=== PATIENT | female | born 1950 | race Caucasian/White ===

== ENCOUNTER 2019-11-29 13:50 | Outpatient (CLI) | payer MEDICARE, SELFPAY ==
[2019-11-29 14:03] LABS: Basophils Absolute Auto 0.02 K/mm3 (0.00-0.10); Basophils Percent Auto 0.4 % (0.0-1.0); Eosinophils Absolute Auto 0.07 K/mm3 (0.02-0.50); Eosinophils Percent Auto 1.6 % (1.0-6.0); Hematocrit 35.3 % (35.0-42.0); Hemoglobin 11.8 g/dL (11.7-13.8); Immature Granulocyte Absolute 0.02 K/mm3 (0.00-0.00); Immature Granulocyte Percent A 0.4 % (0.0-0.0); Lymphocytes Absolute Auto 1.19 K/mm3 (1.10-4.50); Lymphocytes Percent Auto 26.6 % (18.0-42.0); Mean Corpuscular HGB Conc 33.4 g/dL (32.0-36.0); Mean Corpuscular Hemoglobin 27.5 pg (27.0-31.0); Mean Corpuscular Volume 82.3 fL (78.0-102.0); Mean Platelet Volume 11.9 fl (9.2-11.8); Monocytes Absolute Auto 0.52 K/mm3 (0.10-0.90); Monocytes Percent Auto 11.6 % (2.0-11.0); Neutrophils Absolute Auto 2.7 K/mm3 (1.7-7.2); Neutrophils Percent Auto 59.4 % (50.0-70.0); Platelet Count Result 233 K/mm3 (150-420); Red Blood Count 4.29 M/mm3 (4.20-5.40); Red Cell Distribution Width 14.8 % (11.6-14.4); White Blood Count 4.5 K/mm3 (4.8-10.8)
[2019-11-29 14:05] LABS: Appearance Urine Sl Cloudy (Clear); Bilirubin Urine Negative (Negative); Color Urine Yellow (Yellow); Glucose Urine UA Negative (Negative); Ketones Urine Negative (Negative); Leukocyte Esterase Ur Negative LEU/UL (Negative); Nitrate Urine Negative (Negative); Protein Urine Negative (Negative); Specific Grav Ur 1.025 (1.010-1.020); Urobilinogen Urine 0.2 mg/dL (0.2-1.0); pH Urine 5.5 (5.0-8.0)
[2019-11-29 14:11] LABS: Add Urine Microscopic? YES; Blood Urine Trace-Intact (Negative)
[2019-11-29 14:13] LABS: RBC Urine 0-2 /hpf (0-2); Squamous Epithelial Cell Urine Moderate /hpf (Few); WBC Urine 0-3 /hpf (0-3)
[2019-11-29 14:14] LABS: Bacteria Urine 2+ /hpf
[2019-11-29 15:16] LABS: Alanine Aminotransferase 25 U/L (14-59); Albumin Level 3.8 g/dL (3.4-5.0); Alkaline Phosphatase 117 U/L (46-116); Anion Gap 15.1 mmol/L (7-16); Aspartate Amino Transferase 16 U/L (15-37); Bilirubin,Total 0.3 mg/dL (0.00-1.00); Blood Urea Nitrogen 30 mg/dL (7-18); Carbon Dioxide 26 mmol/L (21-32); Chloride 104 mmol/L (98-108); Cholesterol 224 mg/dL (0-200); Creatine Kinase 94 U/L (26-192); Estimated Glomerular Filt Rate 40; Ferritin 62 ng/mL (8-252); Glucose 85 mg/dL (70-99); HDL Direct 95 mg/dL (40-60); Iron 51 ug/dL (50-170); LDL Cholesterol Calculated 123 mg/dL (<130); Osmolality Calculated 297 mOsm/kg (285-295); Percent Iron Saturation 18 % (12-57); Potassium 4.1 mmol/L (3.5-5.1); Sodium 141 mmol/L (136-145); Total Protein 7.6 g/dL (6.4-8.2); Triglycerides 30 mg/dL (0-150); Vitamin B12 1320 pg/mL (193-986)
[2019-12-04 19:58] LABS: Vitamin D 25 Hydroxy 30 ng/mL (30-100)
== END 2019-11-29 13:51 | disposition home or self-care (01) ==
LOC: CHSLAB 13:53
PROVIDERS: PCP Internal Medicine; Visit Provider Internal Medicine
DX: D64.0 Hereditary sideroblastic anemia (principal); I12.9 Hypertensive chronic kidney disease with stage 1 through stage 4 chronic kidney disease, or unspecified chronic kidney disease; N18.2 Chronic kidney disease, stage 2 (mild); E78.5 Hyperlipidemia, unspecified; E55.9 Vitamin D deficiency, unspecified
CPT/HCPCS: 36415; 80053; 80061; 81001; 82306; 82550; 82607; 82728; 83540; 83550; 85025

== ENCOUNTER 2020-10-31 11:24 | Outpatient (CLI) | payer MEDICARE, SELFPAY ==
[2020-10-31 12:39] LABS: SARS-CoV-2 Ag Negative (Negative)
== END 2020-10-31 11:25 | disposition home or self-care (01) ==
LOC: CHSLAB 11:27
PROVIDERS: PCP Internal Medicine; Visit Provider Internal Medicine
DX: R05 Cough (principal); R09.81 Nasal congestion; Z20.822 Contact with and (suspected) exposure to COVID-19
CPT/HCPCS: 87426; C9803

== ENCOUNTER 2021-03-28 13:48 | Outpatient (CLI) | payer MEDICARE, BC, SELFPAY ==
--- NOTE | ~2021-03-28 | MM_ITS ---
EXAMINATION: MM screening [facility] HISTORY: Screening TECHNIQUE: Craniocaudal and mediolateral oblique 3-D tomosynthesis images were obtained and synthetic 2-D images were generated. CAD analysis was submitted and interpreted. COMPARISON: Comparison to multiple prior studies sequentially, with oldest reviewed study dated 04/2014. BREAST PARENCHYMAL COMPOSITION: There are scattered areas of fibroglandular density. FINDINGS: There is no evidence of suspicious mass, calcification, or architectural distortion to sugg est malignancy in either breast. There has been no suspicious interval change. IMPRESSION: 1. No mammographic evidence of malignancy. 2. Recommend routine screening mammography in one year. BI-RADS Category 1: Negative Reviewed, dictated and finalized at location A.
== END 2021-03-28 13:49 | disposition home or self-care (01) ==
LOC: CHSIMG 13:51
PROVIDERS: PCP Internal Medicine; Visit Provider Internal Medicine
DX: Z12.31 Encounter for screening mammogram for malignant neoplasm of breast (principal)
CPT/HCPCS: 77063; 77067

== ENCOUNTER 2021-07-29 09:46 | Outpatient (CLI) | payer MEDICARE, SELFPAY ==
[2021-07-29 11:27] LABS: Influenza A QL RT-PCR Negative (Negative); Influenza B QL RT-PCR Negative (Negative); SARS-CoV-2 RNA PCR Negative (Negative)
== END 2021-07-29 09:47 | disposition home or self-care (01) ==
LOC: CHSLAB 09:49
PROVIDERS: PCP Internal Medicine; Visit Provider Internal Medicine
DX: J06.9 Acute upper respiratory infection, unspecified (principal); Z20.822 Contact with and (suspected) exposure to COVID-19
CPT/HCPCS: 87502; C9803; U0003; U0005

== ENCOUNTER 2022-04-13 14:17 | Outpatient (CLI) | payer MEDICARE, BC, SELFPAY ==
--- NOTE | ~2022-04-13 | MM_ITS ---
EXAMINATION: MM screening [facility] HISTORY: Screening TECHNIQUE: Craniocaudal and mediolateral oblique 3-D tomosynthesis images were obtained and synthetic 2-D images were generated. CAD analysis was submitted and interpreted. COMPARISON: Comparison to multiple prior studies sequentially, with oldest reviewed study dated 04/2014. BREAST PARENCHYMAL COMPOSITION: There are scattered areas of fibroglandular density. FINDINGS: There is no evidence of suspicious mass, calcification, or architectural distortion to sugg est malignancy in either breast. There has been no suspicious interval change. IMPRESSION: 1. No mammographic evidence of malignancy. 2. Recommend routine screening mammography in one year. BI-RADS Category 1: Negative Reviewed, dictated and finalized at location A.
== END 2022-04-13 14:18 | disposition home or self-care (01) ==
LOC: CHSIMG 14:20
PROVIDERS: PCP Internal Medicine; Visit Provider Internal Medicine
DX: Z12.31 Encounter for screening mammogram for malignant neoplasm of breast (principal)
CPT/HCPCS: 77063; 77067

== ENCOUNTER 2022-07-10 14:33 | Outpatient (CLI) | payer MEDICARE, BC, SELFPAY ==
--- NOTE | ~2022-07-10 | US_ITS ---
EXAMINATION: US venous doppler LE RT DATE: 07/10/2022 15:20 INDICATION: Right lower limb swelling TECHNIQUE: Grayscale ultrasound images without and with compression and Doppler ultrasound images of the right lower extremity veins were obtained. COMPARISON: 02/06/2015 FINDINGS: The visualized portions of right common femoral vein, profunda (deep) femoral vein, femoral vein, pop liteal vein, peroneal trunk, posterior tibial veins, peroneal veins, gastrocnemius vein and greater s aphenous vein outflow are patent. 6.2 x 4.2 x 2.3 cm [place] cyst at the right popliteal fossa. IMPRESSION: 1. No deep venous thrombosis in the right lower limb. 2. Moderate-sized [place] cyst at the right popliteal fossa. Reviewed, dictated and finalized at location B.
--- NOTE | ~2022-07-10 | XR_ITS ---
EXAM: XR knee RT 3V DATE: 07/10/2022 15:24 HISTORY: LATERAL RIGHT KNEE PAIN X 1 WEEK. NO KNOWN INJURY. . COMPARISON: None available. FINDINGS: Normal mineralization. No fracture or dislocation. No lytic or blastic lesion. Mild medial joint space narrowing. Mild tricompartmental osteophytosis. Small volume joint fluid. No erosion or periosteal change. Soft tissues within normal limits. IMPRESSION: Mild tricompartmental right knee osteoarthritis. Small right knee joint effusion. Reviewed, dictated and finalized at location K. IMPRESSION: Mild tricompartmental right knee osteoarthritis. Small right knee j oint effusion.
[2022-07-10 14:51] LABS: Basophils Absolute Auto 0.07 K/mm3 (0.00-0.10); Basophils Percent Auto 1.2 % (0.0-1.0); Eosinophils Absolute Auto 0.14 K/mm3 (0.02-0.50); Eosinophils Percent Auto 2.5 % (1.0-6.0); Hematocrit 35.3 % (35.0-42.0); Hemoglobin 11.5 g/dL (11.7-13.8); Immature Granulocyte Absolute 0.01 K/mm3 (0.00-0.00); Immature Granulocyte Percent A 0.2 % (0.0-0.0); Lymphocytes Absolute Auto 1.25 K/mm3 (1.10-4.50); Lymphocytes Percent Auto 22.1 % (18.0-42.0); Mean Corpuscular HGB Conc 32.6 g/dL (32.0-36.0); Mean Corpuscular Hemoglobin 27.2 pg (27.0-31.0); Mean Corpuscular Volume 83.5 fL (78.0-102.0); Mean Platelet Volume 12.6 fl (9.2-11.8); Monocytes Percent Auto 8.8 % (2.0-11.0); Neutrophils Absolute Auto 3.7 K/mm3 (1.7-7.2); Neutrophils Percent Auto 65.2 % (50.0-70.0); Platelet Count Result 232 K/mm3 (150-420); Red Blood Count 4.23 M/mm3 (4.20-5.40); Red Cell Distribution Width 15.8 % (11.6-14.4); White Blood Count 5.7 K/mm3 (4.8-10.8)
[2022-07-10 15:06] LABS: Alanine Aminotransferase 18 U/L (14-59); Albumin Level 3.4 g/dL (3.4-5.0); Alkaline Phosphatase 107 U/L (46-116); Anion Gap 4 mmol/L (8-16); Aspartate Amino Transferase 15 U/L (15-37); Bilirubin,Total 0.3 mg/dL (0.00-1.00); Blood Urea Nitrogen 20 mg/dL (7-18); Calcium 9.1 mg/dL (8.5-10.1); Carbon Dioxide 31 mmol/L (21-32); Chloride 105 mmol/L (98-108); Estimated Glomerular Filt Rate 43; Glucose 97 mg/dL (70-99); Osmolality Calculated 292 mOsm/kg (285-295); Potassium 3.6 mmol/L (3.5-5.1); Sodium 140 mmol/L (136-145); Total Protein 7.6 g/dL (6.4-8.2); Uric Acid 5.3 mg/dL (2.6-6.0)
[2022-07-10 15:24] LABS: CRP < 0.5 mg/dL (0.0-0.9)
== END 2022-07-10 14:34 | disposition home or self-care (01) ==
LOC: CHSLAB 14:37
PROVIDERS: PCP Internal Medicine; Visit Provider Nurse Practitioner Family
DX: M25.561 Pain in right knee (principal); M79.89 Other specified soft tissue disorders
CPT/HCPCS: 36415; 73562; 80053; 84550; 85025; 86140; 93971

== ENCOUNTER 2022-07-14 10:32 | Outpatient (CLI) | payer MEDICARE, SELFPAY ==
[2022-07-14 10:48] LABS: Basophils Absolute Auto 0.06 K/mm3 (0.00-0.10); Basophils Percent Auto 1.2 % (0.0-1.0); Eosinophils Absolute Auto 0.12 K/mm3 (0.02-0.50); Eosinophils Percent Auto 2.4 % (1.0-6.0); Hematocrit 36.9 % (35.0-42.0); Hemoglobin 11.9 g/dL (11.7-13.8); Immature Granulocyte Absolute 0.02 K/mm3 (0.00-0.00); Immature Granulocyte Percent A 0.4 % (0.0-0.0); Lymphocytes Absolute Auto 1.43 K/mm3 (1.10-4.50); Lymphocytes Percent Auto 29.1 % (18.0-42.0); Mean Corpuscular HGB Conc 32.2 g/dL (32.0-36.0); Mean Corpuscular Volume 83.9 fL (78.0-102.0); Mean Platelet Volume 12.4 fl (9.2-11.8); Monocytes Percent Auto 10.2 % (2.0-11.0); Neutrophils Absolute Auto 2.8 K/mm3 (1.7-7.2); Neutrophils Percent Auto 56.7 % (50.0-70.0); Platelet Count Result 239 K/mm3 (150-420); Red Cell Distribution Width 15.9 % (11.6-14.4); White Blood Count 4.9 K/mm3 (4.8-10.8)
[2022-07-14 10:53] LABS: Appearance Urine Clear (Clear); Bilirubin Urine Negative (Negative); Color Urine Yellow (Yellow); Glucose Urine UA Negative (Negative); Ketones Urine Negative (Negative); Leukocyte Esterase Ur Negative LEU/UL (Negative); Nitrate Urine Negative (Negative); Protein Urine Negative (Negative); Specific Grav Ur 1.025 (1.010-1.020); Urobilinogen Urine 0.2 mg/dL (0.2-1.0)
[2022-07-14 11:01] LABS: Add Urine Microscopic? YES; Blood Urine Trace-Intact (Negative); RBC Urine 0-2 /hpf (0-2); Squamous Epithelial Cell Urine Moderate /hpf (Few); WBC Urine 0-3 /hpf (0-3)
[2022-07-14 11:02] LABS: Bacteria Urine 1+ /hpf
[2022-07-14 11:18] LABS: Alanine Aminotransferase 19 U/L (14-59); Albumin Level 3.3 g/dL (3.4-5.0); Alkaline Phosphatase 110 U/L (46-116); Anion Gap 8 mmol/L (8-16); Aspartate Amino Transferase 14 U/L (15-37); Bilirubin,Total 0.4 mg/dL (0.00-1.00); Blood Urea Nitrogen 22 mg/dL (7-18); Calcium 9.1 mg/dL (8.5-10.1); Carbon Dioxide 30 mmol/L (21-32); Chloride 103 mmol/L (98-108); Cholesterol 195 mg/dL (0-200); Creatine Kinase 108 U/L (26-192); Estimated Glomerular Filt Rate 40; Ferritin 118 ng/mL (8-252); Glucose 97 mg/dL (70-99); HDL Direct 88 mg/dL (40-60); Iron 69 ug/dL (50-170); LDL Cholesterol Calculated 99 mg/dL (<130); Osmolality Calculated 295 mOsm/kg (285-295); Potassium 4.2 mmol/L (3.5-5.1); Sodium 141 mmol/L (136-145); Total Protein 7.6 g/dL (6.4-8.2); Triglycerides 42 mg/dL (0-150)
== END 2022-07-14 10:33 | disposition home or self-care (01) ==
LOC: CHSLAB 10:33
PROVIDERS: PCP Internal Medicine; Visit Provider Internal Medicine
DX: E78.2 Mixed hyperlipidemia (principal); I10 Essential (primary) hypertension; D64.9 Anemia, unspecified; N39.0 Urinary tract infection, site not specified
CPT/HCPCS: 36415; 80053; 80061; 81001; 82550; 82728; 83540; 85025

== ENCOUNTER 2023-04-22 13:18 | Outpatient (CLI) | payer MEDICARE, BC, SELFPAY ==
--- NOTE | ~2023-04-22 | MM_ITS ---
EXAMINATION: MM screening [facility] HISTORY: Screening mammogram TECHNIQUE: Craniocaudal and mediolateral oblique 3-D tomosynthesis images were obtained and synthetic 2-D images were generated. CAD analysis was submitted and interpreted. COMPARISON: 04/13/2022, 03/28/2021, 10/10/2019 BREAST PARENCHYMAL COMPOSITION: There are scattered areas of fibroglandular density. FINDINGS: No suspicious mass, calcification, or architectural distortion are identified in either tay ast to suggest malignancy. There has been no suspicious interval change. IMPRESSION: 1. No mammographic evidence of malignancy. 2. Recommend routine screening mammography in one year. BI-RADS Category 1: Negative Reviewed, dictated and finalized at location A.
== END 2023-04-22 13:19 | disposition home or self-care (01) ==
LOC: CHSIMG 13:20
PROVIDERS: PCP Internal Medicine; Visit Provider Internal Medicine
DX: Z12.31 Encounter for screening mammogram for malignant neoplasm of breast (principal)
CPT/HCPCS: 77063; 77067

== ENCOUNTER 2023-08-26 11:56 | Outpatient (CLI) | payer MEDICARE, SELFPAY ==
[2023-08-26 12:09] LABS: Appearance Urine Clear (Clear); Basophils Absolute Auto 0.08 K/mm3 (0.00-0.10); Basophils Percent Auto 1.5 % (0.0-1.0); Bilirubin Urine Negative (Negative); Blood Urine Trace-Intact (Negative); Color Urine Yellow (Yellow); Eosinophils Absolute Auto 0.07 K/mm3 (0.02-0.50); Eosinophils Percent Auto 1.3 % (1.0-6.0); Glucose Urine UA Negative (Negative); Hematocrit 39.1 % (35.0-42.0); Hemoglobin 12.4 g/dL (11.7-13.8); Immature Granulocyte Absolute 0.02 K/mm3 (0.00-0.00); Immature Granulocyte Percent A 0.4 % (0.0-0.0); Ketones Urine Negative (Negative); Leukocyte Esterase Ur 1+ (Negative); Lymphocytes Absolute Auto 1.76 K/mm3 (1.10-4.50); Lymphocytes Percent Auto 33.9 % (18.0-42.0); Mean Corpuscular HGB Conc 31.7 g/dL (32.0-36.0); Mean Corpuscular Hemoglobin 27.1 pg (27.0-31.0); Mean Corpuscular Volume 85.4 fL (78.0-102.0); Mean Platelet Volume 12.2 fl (9.2-11.8); Monocytes Absolute Auto 0.49 K/mm3 (0.10-0.90); Monocytes Percent Auto 9.4 % (2.0-11.0); Neutrophils Absolute Auto 2.8 K/mm3 (1.7-7.2); Neutrophils Percent Auto 53.5 % (50.0-70.0); Nitrate Urine Negative (Negative); Platelet Count Result 245 K/mm3 (150-420); Protein Urine Trace (Negative); Red Blood Count 4.58 M/mm3 (4.20-5.40); Red Cell Distribution Width 15.5 % (11.6-14.4); Specific Grav Ur 1.025 (1.010-1.020); Urobilinogen Urine 0.2 mg/dL (0.2-1.0); White Blood Count 5.2 K/mm3 (4.8-10.8)
[2023-08-26 12:16] LABS: Add Urine Microscopic? YES; RBC Urine None seen /hpf (0-2); Squamous Epithelial Cell Urine Moderate /hpf (Few)
[2023-08-26 12:17] LABS: Bacteria Urine 2+ /hpf; Mucus Urine Few /lpf
[2023-08-26 12:52] LABS: Alanine Aminotransferase 27 U/L (14-59); Albumin Level 3.6 g/dL (3.4-5.0); Alkaline Phosphatase 102 U/L (46-116); Anion Gap 4 mmol/L (8-16); Aspartate Amino Transferase 18 U/L (15-37); Bilirubin,Total 0.4 mg/dL (0.00-1.00); Blood Urea Nitrogen 21 mg/dL (7-18); Calcium 9.4 mg/dL (8.5-10.1); Carbon Dioxide 35 mmol/L (21-32); Chloride 103 mmol/L (98-108); Cholesterol 207 mg/dL (0-200); Creatine Kinase 69 U/L (26-192); Estimated Glomerular Filt Rate 37; Glucose 86 mg/dL (70-99); HDL Direct 84 mg/dL (40-60); LDL Cholesterol Calculated 114 mg/dL (<130); Osmolality Calculated 296 mOsm/kg (285-295); Potassium 4.6 mmol/L (3.5-5.1); Sodium 142 mmol/L (136-145); Total Protein 7.2 g/dL (6.4-8.2); Triglycerides 44 mg/dL (0-150)
== END 2023-08-26 11:57 | disposition home or self-care (01) ==
LOC: CHSLAB 11:58
PROVIDERS: PCP Internal Medicine; Visit Provider Internal Medicine
DX: D64.9 Anemia, unspecified (principal); I10 Essential (primary) hypertension; E78.00 Pure hypercholesterolemia, unspecified; N18.2 Chronic kidney disease, stage 2 (mild)
CPT/HCPCS: 36415; 80053; 80061; 81001; 82550; 85025

== ENCOUNTER 2023-11-15 13:20 | Outpatient (CLI) | payer MEDICARE, SELFPAY ==
[2023-11-15 14:04] LABS: Anion Gap 8 mmol/L (8-16); Blood Urea Nitrogen 23 mg/dL (7-18); Calcium 9.1 mg/dL (8.5-10.1); Carbon Dioxide 32 mmol/L (21-32); Chloride 101 mmol/L (98-108); Estimated Glomerular Filt Rate 36; Glucose 93 mg/dL (70-99); Osmolality Calculated 295 mOsm/kg (285-295); Potassium 3.7 mmol/L (3.5-5.1); Sodium 141 mmol/L (136-145)
== END 2023-11-15 13:21 | disposition home or self-care (01) ==
LOC: CHSLAB 13:21
PROVIDERS: PCP Internal Medicine; Visit Provider Internal Medicine
DX: N18.2 Chronic kidney disease, stage 2 (mild) (principal)
CPT/HCPCS: 36415; 80048

== ENCOUNTER 2024-01-25 11:45 | Outpatient (CLI) | payer MEDICARE, SELFPAY ==
[2024-01-25 12:40] LABS: Anion Gap 7 mmol/L (4-12); Blood Urea Nitrogen 16 mg/dL (7-18); Carbon Dioxide 30 mmol/L (21-32); Chloride 103 mmol/L (98-108); Estimated Glomerular Filt Rate 43; Glucose 56 mg/dL (70-99); Osmolality Calculated 289 mOsm/kg (285-295); Potassium 3.8 mmol/L (3.5-5.1); Sodium 140 mmol/L (136-145)
== END 2024-01-25 11:46 | disposition home or self-care (01) ==
LOC: CHSLAB 11:47
PROVIDERS: PCP Internal Medicine; Visit Provider Internal Medicine
DX: I10 Essential (primary) hypertension (principal)
CPT/HCPCS: 36415; 80048

== ENCOUNTER 2024-08-10 10:00 | Outpatient (CLI) | payer MEDICARE, BC, SELFPAY ==
--- NOTE | ~2024-08-10 | MM_ITS ---
EXAMINATION: MM screening [facility] HISTORY: Screening mammogram TECHNIQUE: Craniocaudal and mediolateral oblique 3-D tomosynthesis images were obtained and synthetic 2-D images were generated. CAD analysis was submitted and interpreted. COMPARISON: 04/22/2023, 04/13/2022, 03/28/2021 BREAST PARENCHYMAL COMPOSITION:Not Dense. There are scattered areas of fibroglandular density. FINDINGS: No suspicious mass, calcification, or architectural distortion are identified in either tay ast to suggest malignancy. There has been no suspicious interval change. IMPRESSION: No mammographic evidence of malignancy. Recommend routine screening mammography in one year. BI-RADS Category 1: Negative Reviewed, dictated and finalized at location . 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
--- NOTE | ~2024-08-10 | DEXA_ITS ---
Bone Density Report Name: PARISA ANTONIO Age: 74 Sex: Female Ethnicity: White Date of : 1950 Indication: postmenopausal; screening for osteoporosis; height loss; asthma or emphysema; Referring Provider: Bonita Coppola Study: Bone densitometry was performed. Exam Date: August 10, 2024 Accession number: [id number] Bone Density: Region BMD T-score Z-score Classification AP Spine(L1-L4) 1.143 0.9 3.1 Normal Femoral Neck (Left) 0.944 0.9 2.8 Normal Total Hip (Left) 1.109 1.4 3.0 Normal Femoral Neck (Right) 0.979 1.2 3.1 Normal Total Hip (Right) 1.143 1.6 3.3 Normal Femoral Neck Mean 0.961 1.0 2.9 Normal Total Hip Mean 1.126 1.5 3.1 Normal World Health Organization criteria for BMD impression classify patients as: Normal (T-score at or above -1.0), Osteopenia (T-score between -1.0 and -2.5), or Osteoporosis (T-score at or below -2.5). 10-year Fracture Risk: FRAX not reported because: All T-scores for Spine Total, Hip Total, Femoral Neck at or above -1.0 Clinical Information Provided by Patient: Has the following medical conditions: Asthma or Emphysema Patient maximum height was 63 Menopause Age: 52 No regular weight bearing exercise Does not regularly consume dairy products Drinks caffeinated beverages Onset of menses at age 14 Number of children 2 Impression: The patient has normal bone mass. Discussion: LOW RISK OF FRACTURE; BONE DENSITY IS WELL ABOVE THE MINIMUM DESIRABLE LEVEL AND ABOVE AVERAGE FOR AGE AND SEX AT ALL SKELETAL SITES TESTED. This person's bone density is above expected limits for age and sex. This is rarely clinically significant, but should be pursued if there are significant musculoskeletal complaints. The patient should follow a healthful lifestyle (good nutrition with adequate calcium and vitamin D, and appropriate weight-bearing exercise). Follow-Up: Consider repeating this study in 5 years or sooner if there is some new clinical indication. Reported by: ELISEO on 08/10/2024 10:36:00 AM. Reviewed, dictated and finalized at location A.
== END 2024-08-10 10:01 | disposition home or self-care (01) ==
LOC: CHSIMG 10:02
PROVIDERS: PCP Internal Medicine; Visit Provider Internal Medicine
DX: Z12.31 Encounter for screening mammogram for malignant neoplasm of breast (principal); Z78.0 Asymptomatic menopausal state
CPT/HCPCS: 77063; 77067; 77080

== ENCOUNTER 2024-10-05 16:21 | Outpatient (CLI) | payer MEDICARE, BC, SELFPAY ==
--- NOTE | ~2024-10-05 | XR_ITS ---
CHEST RADIOGRAPH, PA AND LATERAL CLINICAL HISTORY: cough, wheezing . COMPARISON: 04/30/2015 TECHNIQUE: PA and lateral views of the chest. FINDINGS The cardiomediastinal silhouette is unremarkable. The lungs are clear. Visualized osseous structures and soft tissues are unremarkable. IMPRESSION: No focal infiltrate or effusion. Reviewed, dictated and finalized at location A. 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
[2024-10-05 16:37] LABS: Basophils Absolute Auto 0.05 K/mm3 (0.00-0.10); Basophils Percent Auto 1.2 % (0.0-1.0); Eosinophils Absolute Auto 0.23 K/mm3 (0.02-0.50); Eosinophils Percent Auto 5.7 % (1.0-6.0); Hematocrit 37.7 % (35.0-42.0); Hemoglobin 12.1 g/dL (11.7-13.8); Immature Granulocyte Absolute 0.01 K/mm3 (0.00-0.00); Immature Granulocyte Percent A 0.2 % (0.0-0.0); Lymphocytes Absolute Auto 1.39 K/mm3 (1.10-4.50); Lymphocytes Percent Auto 34.2 % (18.0-42.0); Mean Corpuscular HGB Conc 32.1 g/dL (32-36); Mean Corpuscular Hemoglobin 26.7 pg (27.0-31.0); Mean Corpuscular Volume 83.2 fL (78.0-102.0); Monocytes Absolute Auto 0.58 K/mm3 (0.10-0.90); Monocytes Percent Auto 14.3 % (2.0-11.0); Neutrophils Percent Auto 44.4 % (50.0-70.0); Platelet Count Result 227 K/mm3 (150-420); Red Blood Count 4.53 M/mm3 (4.20-5.40); White Blood Count 4.1 K/mm3 (4.8-10.8)
== END 2024-10-05 16:22 | disposition home or self-care (01) ==
PROVIDERS: PCP Internal Medicine; Visit Provider Internal Medicine
DX: R05.9 Cough, unspecified (principal); R06.2 Wheezing
CPT/HCPCS: 36415; 71046; 85025

== ENCOUNTER 2024-10-10 13:40 | Outpatient (CLI) | payer MEDICARE, BC, SELFPAY ==
--- NOTE | ~2024-10-10 | XR_ITS ---
XR chest 2V Ordering provider: Bonita Coppola MD History: 74 years Female with . cough for over 2 weeks . Comparison: None. FINDINGS: MEDIASTINUM: The cardiac silhouette is not enlarged. LUNGS: No infiltrates, effusions or pneumothorax. OTHER: No free air under the diaphragm. Degenerative changes of the spine. IMPRESSION: No acute cardiopulmonary pathology. Reviewed, dictated and finalized at location A. 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
== END 2024-10-10 13:41 | disposition home or self-care (01) ==
LOC: CHSIMG 13:41
PROVIDERS: PCP Internal Medicine; Visit Provider Internal Medicine
DX: R05.9 Cough, unspecified (principal)
CPT/HCPCS: 71046

== ENCOUNTER 2024-12-27 13:25 | Outpatient (CLI) | payer MEDICARE, SELFPAY ==
[2024-12-27 13:40] LABS: Appearance Urine Clear (Clear); Bilirubin Urine Negative (Negative); Color Urine Yellow (Yellow); Glucose Urine UA Negative (Negative); Ketones Urine Negative (Negative); Leukocyte Esterase Ur Negative LEU/UL (Negative); Nitrate Urine Negative (Negative); Protein Urine Negative (Negative); Specific Grav Ur >= 1.030 (1.010-1.020); Urobilinogen Urine 0.2 mg/dL (0.2-1.0)
[2024-12-27 13:46] LABS: Add Urine Microscopic? NO; Blood Urine Trace-intact (Negative)
[2024-12-27 13:52] LABS: Basophils Absolute Auto 0.06 K/mm3 (0.00-0.10); Basophils Percent Auto 1.4 % (0.0-1.0); Eosinophils Absolute Auto 0.09 K/mm3 (0.02-0.50); Eosinophils Percent Auto 2.1 % (1.0-6.0); Hematocrit 36.7 % (35.0-42.0); Hemoglobin 11.6 g/dL (11.7-13.8); Immature Granulocyte Absolute 0.01 K/mm3 (0.00-0.00); Immature Granulocyte Percent A 0.2 % (0.0-0.0); Lymphocytes Absolute Auto 1.91 K/mm3 (1.10-4.50); Lymphocytes Percent Auto 44.3 % (18.0-42.0); Mean Corpuscular HGB Conc 31.6 g/dL (32-36); Mean Corpuscular Volume 85.3 fL (78.0-102.0); Mean Platelet Volume 12.1 fl (9.2-11.8); Monocytes Absolute Auto 0.42 K/mm3 (0.10-0.90); Monocytes Percent Auto 9.7 % (2.0-11.0); Neutrophils Absolute Auto 1.82 K/mm3 (1.70-7.20); Neutrophils Percent Auto 42.3 % (50.0-70.0); Platelet Count Result 260 K/mm3 (150-420); Red Cell Distribution Width 15.5 % (11.6-14.4); White Blood Count 4.3 K/mm3 (4.8-10.8)
[2024-12-27 14:26] LABS: Alanine Aminotransferase 42 U/L (14-59); Albumin Level 3.5 g/dL (3.4-5.0); Alkaline Phosphatase 124 U/L (46-116); Anion Gap 6 mmol/L (4-12); Aspartate Amino Transferase 19 U/L (15-37); Bilirubin,Total 0.5 mg/dL (0.00-1.00); Blood Urea Nitrogen 22 mg/dL (7-18); Calcium 9.6 mg/dL (8.5-10.1); Carbon Dioxide 31 mmol/L (21-32); Chloride 103 mmol/L (98-108); Cholesterol 205 mg/dL (0-200); Creatine Kinase 65 U/L (26-192); Estimated Glomerular Filt Rate 39; Ferritin 168 ng/mL (8-252); Glucose 87 mg/dL (70-99); HDL Direct 96 mg/dL (40-60); Iron 79 ug/dL (50-170); LDL Cholesterol Calculated 104 mg/dL (<130); Osmolality Calculated 292 mOsm/kg (285-295); Potassium 4.4 mmol/L (3.5-5.1); Sodium 140 mmol/L (136-145); Total Protein 7.1 g/dL (6.4-8.2); Triglycerides 26 mg/dL (0-150)
--- OUTSIDE RECORDS SUMMARY | 2024-12-27 14:45 | XMS_ITS | Clinical Summary ---
Author Organization [facility] Address [address] [place] [id number] Phone Care Team Providers Care Logging Tractor Operator Swamp Name Role Phone Unavailable Primary Care Provider Unavailabl e Medications Medication Sig Dispensed Refills Start Date End Date Status venlafaxine XR (EFFEXOR XR) 150 MG 24 hr capsule 2 tabs/caps qday 07/11/2014 Active buPROPion SR (WELLBUTRIN SR) 100 MG 12 hr tablet 2 tabs in AM, 1 tab in PM 07/11/2014 Active amLODIPine (NORVASC) 5 MG tablet 1 tab/cap qday 07/11/2014 Active Active Problems Problem Noted Date Diagnosed Date Acute kidney failure 08/20/2014 Other abnormal blood chemistry 07/11/2014 Overview (12/10/2018): Converted unresolved ICD9, potential mismatch. Essential (primary) hypertension 07/11/2014 Major depressive disorder with single episode Immunizations Name Administration Dates Next Due Influenza TIV (IM) 08/20/2014,08/20/2014 Family History Medical History Relation Comments Kidney disease Father Kidney stone Neg Hx Relation Status Comments Father Social History Tobacco Use Types Packs/Day Years Used Date Smoking Tobacco: Never Assessed Sex and Gender Information Value Date Recorded Sex Assigned at Not on file Gender Identity Not on file Sexual Orientation Not on file Last Filed Vital Signs Vital Sign Reading Time Taken Comments Blood Pressure 136/70 08/20/2014 12:01 AM MANAGER SURGICAL Sitting, Right Pulse - - Temperature 35.8 C (96.4 F) 08/20/2014 12:01 AM MANAGER SURGICAL Respiratory Rate - - Oxygen Saturation - - Inhaled Oxygen Concentration - - Weight 68 kg (150 lb) 08/20/2014 12:01 AM MANAGER SURGICAL Height 154.9 cm (5' 1 ) 08/20/2014 12:0 1 AM MANAGER SURGICAL Body Mass Index 28.34 08/20/2014 12:01 AM MANAGER SURGICAL Plan of Treatment Not on file
--- OUTSIDE RECORDS SUMMARY | 2024-12-27 14:45 | XMS_ITS | Clinical Summary ---
Author Organization [facility] Address [address] [place] [id number] Care Team Providers Care Furnace Charger Name Role Phone Unavailable Primary Care Provider Unavailabl e Social History Tobacco Use Types Packs/Day Years Used Date Smoking Tobacco: Never Assessed Comments Unknown Sex and Gender Information Value Date Recorded Sex Assigned at Not on file Legal Sex Female 4:57 PM CDT Gender Identity Not on file Sexual Orientation Not on file Plan of Treatment Health Maintenance Due Date Last Done Comments Colorectal Cancer Screening Colonoscopy (10 Years) 1950 Hepatitis C 1970 DTaP, Tdap and Td Vaccines ( 1 - Tdap) 1971 Mammogram Screening 1992 Zoster Vaccines (1 of 2) 2002 Dexa Scan (General) 2017 Pneumococcal Vaccine: 65+ Ye ars (1 of 1 - PCV) 2017 COVID-19 Vaccine ( - 2023-2 5 season) 2024 Influenza Adult (#1) 2024 RSV Immunization or 60+ Years (1 - 1-dose 75+ series) 2027 Meningococcal B Vaccine Aged Out No l onger eligible based on patient's age to complete this topic Meningococcal Vaccine Aged Out No ramesh deven eligible based on patient's age to complete this topic RSV Immunizations Under 20 Months Aged Out No longer eligible based on patient's age to complete this topic
--- OUTSIDE RECORDS SUMMARY | 2024-12-27 14:45 | XMS_ITS | Data Portability ---
Author Organization [facility] Address [address] [place] [address] Care Team Providers Care Denture Packer Name Role Phone TREY CHARLTON Primary Care Provider Assessment Encounter Date Assessment Date Assessment LastModified by Organization Details LastModified Time 04/15/2023 04/15/2023 Annual gynecological exam performed. Patient will come back in a year unless there are new symptoms. [email or web address] Not available 04/15/2023 14:35:39 04/20/2024 04/20/2024 Annual gynecological exam performed. Patient will come back in a year unless there are new symptoms. [email or web address] Not available 04/20/2024 14:30:34 Plan of Treatment Reminders Order Date Submit Date Provider Last Modified By Organization Details Last Modified Time Details Appointments None record ed. Lab None record ed. Referral None record ed. Procedures None record ed. Surgeries None record ed. Imaging None record ed. Medication Orders None record ed. Patient TargetsNo targets recorded. Patient InstructionsNo instructions recorded. Reason for Referral None Reported. Results Created Date Observation Date Name Description Value Unit Range Abnormal Flag Note LastModifiedBy Organization Detail LastModifiedTime 04/20/20 24 04/20/2024 IMAGE GUIDE D PAP AND HPV REGAR DLESS image guided Pap, HPV regardless of Pap result SEE RESULT S BELOW CASE REPOR T: Cytol ogy Gynec ologi castillo Repor t Case: [id number] Autho hyacinth patrick Provi brittnee: Vicky Burgos NP Colle cted: 04/20 1518 Order ing Locat ion: [place] Patho log[facility] Recei jojo: 04/21 0255 First Scree n: Neelam Juarez, CT Speci men: Fernando tavarez Pap - Image d, Cervi x STATE MENT OF ADEQU ACY: Satis facto ry for evalu ation Trans forma tion zone compo nent prese nt ----- ----- ----- ----- ----- ----- ----- ----- ----- ----- ----- ----- ----- ----- ----- ----- ----- ---- FINAL DIAGN OSIS: Negat margaret for Intra epith marlo bourgeois or Danilo alvarado ([facility]) . Elect remy mensah rose d by Neelam Juarez, CT on 024 at 8:21 AM ----- ----- ----- ----- ----- ----- ----- ----- ----- ----- ----- ----- ----- ----- ----- ----- ----- ---- HPV RESUL TS: HPV mRNA E6/E7 : No HPV mRNA Detec jose NOTE: This high risk HPV mRNA assay detec ts fourt een high- risk HPV types (16, 18, 31, 33, 35, 39, 45, 51, 52, 56, 58, 59, 66, 68) witho ut diffe renti ation . COMME NT: This speci men was revie wed by a Cytot echno logis t and/o r Patho logis t (as indic ated in this repor t) after evalu ation using the Thinp rep Imagi ng Syste m. [facility] INFOR MATIO N: Menst rual Statu s: LMP (if appli cable ): Clini castillo Histo ry/Pr eviou s Pap: Type of Neopl soraya (if appli cable ): Signi fican t Clini castillo Findi ngs: Other Histo ry: Hormo mati (if appli cable ): PAP EDUCA RICKY L NOTE: The Pap Test is a scree daysi test with an inher ent false negat margaret rate. Liqui d-bas ed sampl ing may decre ase, but will not elimi mary ellen, false negat margaret resul ts. A negat margaret resul t does not precl ude the prese nce and/o r devel opmen t of disea se, since the prese nce of abnor mal cells in the sampl e depen ds on the locat ion of the lesio n and sampl ing techn ique. Ren nued regul ar scree daysi is the best metho d of cance r preve ntion . If repor jose cytol ogic findi ng do not corre late with physi castillo and/o r histo rical findi ngs, furth er inves tigat ion is recom jordon d, as clini morena galan nted. Not Available [facility] (Lab) [address], [place], [address], 04/27/2024 09:25:15 Result Notes None recorded. Problems Name Problem SNOMED Code Status Onset Date Resolution Date Notes Provider Name and Address Organization Details Recorded Time SNOMED CT Concept Active 2017 Well woman check w/o abnormal finding;Re corded Elsewhere: No Locatio n: [facility] rce: EHR Chroni c: N Practice ID: 0001 Billa ble Time: 11:00:00 AM Not Available [facility] 0 18:54:31 Microscop ic hematuria 649329251 Active 2012 MICROSCOPI C HEMATURIA; Recorded Elsewhere: No Locatio n: [facility] rce: EHR Chroni c: N Practice ID: 0001 Billa ble Time: 11:30:00 AM Not Available [facility] 0 18:54:31 Atypical squamous cells of undetermi jordan significa nce on cervical Papanicol aou smear 773701416 Active 2012 Papanicola ou smear of cervix with atypical squamous cells of undetermin ed significan ce (ASC-US);R ecorded Elsewhere: No Locatio n: [facility] rce: EHR Chroni c: N Practice ID: 0001 Billa ble Time: 11:00:00 AM Not Available [facility] 0 18:54:31 Adult health examinati on Active 2014 ROUTINE MEDICAL EXAM;Recor ded Elsewhere: No Locatio n: [facility] rce: EHR Chroni c: N Practice ID: 0001 Billa ble Time: 09:30:00 AM Not Available [facility] 0 18:54:31 Screening for malignant neoplasm of cervix Active 2012 Screening for malignant neoplasms of the cervix;Rec orded Elsewhere: No Locatio n: [facility] rce: EHR Chroni c: N Practice ID: 0001 Billa ble Time: 11:30:00 AM Not Available [facility] 0 18:54:31 Screening for malignant neoplasm of rectum Active 2014 Screening for malignant neoplasms of the rectum;Pra ctice ID: 0001 Not Available [facility] 0 18:54:[address] Concept Active 2016 Encntr for general adult medical exam w/o abnormal findings;R ecorded Elsewhere: No Locatio n: [facility] rce: EHR Chroni c: N Practice ID: 0001 Billa ble Time: 10:30:00 AM Not Available [facility] 0 18:54:31 Specializ ed medical examinati on Active 2013 Gynecologi castillo Examinatio n;Recorded Elsewhere: No Locatio n: [facility] rce: EHR Chroni c: N Practice ID: 0001 Billa ble Time: 03:00:00 PM Not Available [facility] 0 18:54:31 Condyloma acuminatu m of the anogenita l region 044101405 Active 2014 Condyloma acuminatum ;Recorded Elsewhere: No Locatio n: [facility] rce: EHR Chroni c: N Practice ID: 0001 Billa ble Time: 10:19:07 AM Not Available [facility] 0 18:54:32 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, high risk on cervical specimen 006435866 Active 2018 Cervical high risk HPV DNA test positive;P ractice ID: 0001 Not Available [facility] 0 18:54:32 Abnormal cervical Papanicol aou smear 558673401 Active 2011 Other abnormal papanicola ou smear of cervix and cervical HPV;Practi ce ID: 0001 Not Available [facility] 0 18:54:32 test negative 762718918 Active 2011 Negative Test;Pract ice ID: 0001 Not Available [facility] 0 18:54:32 Carbuncle of skin and/or subcutane ous tissue 86506227 Active 2013 Carbuncle and furuncle of unspecifie d site;Pract ice ID: 0001 Not Available [facility] 0 18:54:33 Atypical glandular cells on cervical Papanicol aou smear 642552716 Active 2014 Pap Abnormal Endocerv Endometria l Óscar;Pract ice ID: 0001 Not Available [facility] 0 18:54:33 Evaluatio n finding Active 2018 Unsp abnormal cytolog findings in specmn from cervix uteri;Matthew rded Elsewhere: No Locatio n: [facility] rce: EHR Chroni c: N Practice ID: 0001 Billa ble Time: 01:30:00 PM Not Available [facility] 0 18:54:34 Problem Notes None recorded. Procedures Surgical History Date Name Laterality Status Provider Name and Address Organization Details Recorded Time 2 Date of Last Colonoscopy completed [facility] 04/15/2023 14:36:16 2 Date of Last Mammogram completed [facility] 04/15/2023 14:36:38 0 Date of Last Pap Smear completed [facility] 04/15/2023 14:26:55 9 Colposcopy completed [facility] 04/15/2023 14:58:10 Carpal tunnel surgery completed [facility] 04/15/2023 14:36:56 ligation of fallopian tube completed [facility] 04/15/2023 14:37:06 Imaging Results None recorded. Procedure Notes None recorded. Medical Equipment None Reported. Allergies No known drug allergies Medications Name Sig Start Date Stop Date Status Note LastModified by Organization Details LastModified Time venlafaxi ne ER 37.5 mg capsule,e xtended release 24 hr take 1 capsule by oral route every day with food 04/15 completed Prescrib ed Elsewher e: Yes Loca tion: Chanda martinez [facility] odify By: ela marcum DateTime : 03/15/20 14 01:00:00 PM Not Available Not Available Not Available Lotrisone 1 %-0.05 % topical cream apply by topical route 2 times every day for 2 weeks to the affected and surround ing areas of skin in the morning and evening 08/02 completed Prescrib ed Elsewher e: No Locat ion: Chanda martinez [facility] odify By: chani Zavala nter DateTime : 07/20/20 17 10:30:00 AM Not Available Not Available Not Available atenolol 25 mg tablet take 1 tablet by oral route every day 10/11 completed Prescrib ed Elsewher e: Yes Loca tion: Chanda martinez [facility] odify By: ela marcum DateTime : 02/09/20 12 10:30:00 AM Not Available Not Available Not Available amlodipin e 2.5 mg tablet take 1 tablet by oral route every day active Prescrib ed Elsewher e: Yes Loca tion: Chanda martinez [facility] odify By: ela marcum DateTime : 10/11/19 15 11:00:00 AM Not Available Not Available Not Available Bactroban 2 % topical cream apply by topical route 3 times every day for 10 days a small amount to the affected area 03/24 completed Prescrib ed Elsewher e: No Locat ion: Chanda martinez [facility] odify By: chani Zavala nter DateTime : 03/15/20 14 01:00:00 PM Not Available Not Available Not Available Cipro 500 mg tablet take 1 tablet by oral route every 12 hours 04/05 completed Prescrib ed Elsewher e: No Locat ion: [facility] odify By: linda silva DateTime : 03/15/20 14 01:00:00 PM Not Available Not Available Not Available hydrochlo rothiazid e 25 mg tablet take 1 tablet by oral route every day 04/05 completed Prescrib ed Elsewher e: Yes Loca tion: [facility] odify By: linda Martinez ncounter DateTime : 02/09/20 12 10:30:00 AM Not Available Not Available Not Available escitalop juan 20 mg tablet Take 1 tablet every day by oral route. active Not Available Not Available No t Available bupropion HCl (bulk) 100 % powder active Prescrib ed Elsewher e: Yes Loca tion: [facility] odify By: ela marcum DateTime : 03/15/20 14 01:00:00 PM Not Available Not Available Not Available lovastati n active Not Available Not Available Not Available Vitals Date Recorded Body height Body mass index (BMI) Body weight Systolic blood pressure Diastolic blood pressure Provider Name and Address Organization Details Last Updated DateTime 04/15/2023 160.02 cm 33.1 kg/m2 14745.77 g 142 mm[Hg] 82 mm[Hg] Alice Jackson [facility] 3 14:40:23 Date Recorded Body height Body mass index (BMI) Body weight Systolic blood pressure Diastolic blood pressure Provider Name and Address Organization Details Last Updated DateTime 04/20/2024 160.02 cm 28.5 kg/m2 24271.37 g 126 mm[Hg] 76 mm[Hg] Shima Davey [facility] 4 14:30:52 Social History Question Answer Notes LastModified by Organizat ion Details LastModified Time Tobacco Smoking Status Never Smoker Alice justice [facility] 04/15/2023 14:24:36 What Is Your Level Of Alcohol Consumption? None Information not available 04/15/2023 Do You Use Any Illicit Or Recreational Drugs? No Information not available 04/15/2023 Has Tobacco Cessation Counseling Been Provided? No Information not available 04/15/2023 Do You Or Have You Ever Used Any Other Forms Of Tobacco Or Nicotine? No Information not available 04/15/2023 Sex: Unknown Functional Status None recorded. Mental Status None recorded. Family History Nothing Reported. Medical History Condition Response Allergies (Food, seasonal, environmental ) N Other N Breast Cancer N Drug/Latex Allergies/Reactions N Blood Transfusion N Dermatologic Disorders N Lung Disease N Defects or Inherited Disease N Breast Problem N Gestational Diabetes N Hematologic disorders N Anesthesia Complications N History of STI N Deep Vein Thrombosis N Polycystic ovary syndrome N Anxiety Disorder Y Autoimmune disease N Arthritis N Infertility N Polyps N Acid Reflux (GERD) N History of abnormal pap N Cancer N Stroke N Varicosities N Neurologic/Epilepsy N Endometriosis N High Cholesterol N Headaches N Fibromyalgia N Kidney Disease N Heart Problems N Kidney or Bladder Problems N Thyroid Problems N GI Problems N Eating Disorder N Anemia N Art (IVF or FET) N Psychiatric Illness N Ovarian Cancer N Diabetes N Pulmonary (TB, Asthma) N Hepatitis/Liver Disease N No Past Medical History N Eczema N Urinary Tract Infection N Abuse/Domestic Violence N Asthma Y Trauma/Violence N Depression/ depression Y Heart Disease N Pre-Eclampsia N Hypertension Y Osteoporosis N Thrombophilias N Gynecological History Statement/Question Response Abnormal Pap Y Date of Last Colonoscopy 09/27/2021 Date of Last Mammogram 09/27/2021 Most Recent Bone Density Age of first menstrual cycle 15 Colposcopy 10/20/2018 Date of Last Pap Smear 10/03/2019 Current Control Method None Desired Control Method Sterilizati on Obstetrics History GPAL:G 2 P 2 0 0 2 Type Value Full Term 2 Living 2 Total 2 Past Encounters Encounter ID Performer Location Encounter Start Date Encounter Closed Date Diagnosis/Indication Diagnosis SNOMED-CT Code Diagnosis ICD10 Code Diagnosis Note [id number] [facility] [address] [address] 04/15/2023 14:13:18 04/15/2023 15:14:28 Gynecologic examination 00510635 Z01.419 Take Calcium with Vitamin D 12-1500mg daily. Do monthly self breast exams. It is advised to get annual flu shot in the fall and she could obtain at [facility] or [facility] care clinic. If you haven't received the Tdap vaccine in the last 10 years you should obtain one as well. Have mammogram yearly, bone density every 2-3 years and colonoscop y every 5-10 years depending on findings and history. Engage in daily exercise of low impact aerobic exercise 45-60 minutes 4-5 times weekly. Avoid tobacco and illicit drugs as well as using moderation with alcohol intake less than 1-2 8 oz beverages daily. This lifestyle behavior pattern will lead to less health conditions and longer life span. If BMI greater than 25 weight watchers or dietary consult advised. Questions have been answered. Patient appears to understand instructio ns, but if you have any further questions call or respond to this email RKEpYuenimeiyashira zayasusallas t pap 2019 - normalpaps d/c'd unless otherwise indicatedS TI testing declinedMa mmogram UTD , scheduled - order through PCPDexa UTD through PCPcolonos copy UTDBP precaution s reviewed, f/u with PCPRTC in 1 year or sooner if needed [facility] [address] [address] 04/20/2024 14:22:07 04/20/2024 15:00:46 Gynecologic examination 62268170 Z01.419 WWEpNomiusalpap updated per pt preference declined STI screenmamm ogram UTD / PCPdexa UTD / ordered through PCPcolonos copy UTD Do monthly self breast exams. It is advised to get annual flu shot in the fall and she could obtain at local pharmacy. If you haven't received the Tdap vaccine in the last 10 years you should obtain one as well. Stay up to date on screening mammogram, bone density testing, and colonoscop y. Engage in regular exercise. Avoid tobacco and illicit drugs.. This lifestyle behavior pattern will lead to less health conditions and longer life span. If BMI greater than 25 dietary consult advised. Questions have been answered. Patient appears to understand instructio ns, but if you have any further questions call or respond to this email Health Concerns Section Related Observation LastModified by Organization Detai ls LastModified Time None Recorded Concern Status LastModified by Organization Details LastModified Time None Recorded Advance Directives Directive None Recorded Payers Encounter Date Sequence Insurance Name Policy Number Policy Duran Covered Member ID Duran Member ID Guarantor Name 04/15/2023 1 [place] Laurel E Niesha [id number] Gladis E Niesha 04/15/2023 2 [facility] [id number] Ray A Niesha [id number] Laurel E Niesha 04/20/2024 1 [place] Gladis E Niesha [id number] Gladis E Niesha 04/20/2024 2 [place] [id number] Ray A Niesha [id number] Gladis E Niesha Notes Date Note Type Note Provider Name and Address Organization Details Recorded Time 3 text/html Annual Platform Stapler Post-MenopausalReported bypatient.Menopausal Symptoms:no menopausal symptoms; normal vaginal lubrication Vaginal Bleeding:history of menopause having occurred; no history of post menopausal bleeding Urinary Symptoms:no hematuria; no incontinence; no nocturia; no urinary frequency Vulva:no genital lesion; no vulvar atrophy Vagina:normal vaginal discharge; no vaginal atrophy Breast:no breast lump; no nipple discharge; no breast pain Sexual Complaints:no sexual complaints Psychological Symptoms:no depression; no anxiety Preventive Measures:encourage regular mammograms starting age 40; encourage self breast examination; encourage regular exercise; encourage no tobacco use; mammogram performed within the past year [facility] [address], [place], [address], [facility] 04/15/2023 15:06:56 4 text/html Annual Platform Stapler Post-MenopausalReported bypatient.Menopausal Symptoms:no menopausal symptoms; normal vaginal lubrication Vaginal Bleeding:history of menopause having occurred; no history of post menopausal bleeding Urinary Symptoms:no hematuria; no incontinence; no nocturia; no urinary frequency Vulva:no genital lesion; no vulvar atrophy Vagina:normal vaginal discharge; no vaginal atrophy Breast:no breast lump; no nipple discharge; no breast pain Sexual Complaints:no sexual complaints Psychological Symptoms:no depression; no anxiety Preventive Measures:encourage regular mammograms starting age 40; encourage self breast examination; encourage regular exercise; encourage no tobacco useNotes:74yo WWEpostmenopausallast pap 2020 - normalh/o HPV (+) pap in the past, no procedures required per pt mammogram UTD / PCPcolonoscopy UTD / PCPdexa UTD / PCP [facility] [address], [place], [address], [place] [facility] 04/20/2024 14:47:09 OBGyn Episode Ob Episode Information Episode Created Date Number of Fetuses Patient Bloodtype Patient rh Status Prepregnancy Weight lbs Domestic Partner Domestic Partner Phone Father Name Diesel Mechanic Farm Status 04/15/20 1 CLOSED Fetus Data First Name Last Name Admitted to NICU Weight (g) Sex Living Outcome Pediatric Complications Fetus ID Race Codes Race Delivery Type 2721.55 2 F Full Term Vaginal Delivery Domenico Calculation Initial Domenico Date Initial Exam Date Initial Exam Provider Initial Ultrasound Date Last Menstrual Period Date Ultra Sound Weeks Gestation 0 Eighteen To Twenty Week Domenico Update Ultra Sound Date Fundal Height At Umbil Quickening Date Ultra Sound Latest Weeks Gestation Final Domenico Confirmed By Final Domenico Confirmed Date Final Domenico Date Ultra Sound Latest Days Gestation 0 0 Menstrual History Last Menstrual Date Menses Monthly On Bcp Conception Prior Menses Frequency Hcg Plus Date Menarche Onset Age Delivery Information Delivery Date Delivery Type Labor Anesthesia Weeks Gestation Incision Type Labor Labor Length Hrs Delivered By Post Complications Tubal Sterilization Discharge Date Comments 4 40 Discharge Information Feeding Method Contraceptive Method Maternal HG B and HCT Levels Ob Episode Information Episode Created Date Number of Fetuses Patient Bloodtype Patient rh Status Prepregnancy Weight lbs Domestic Partner Domestic Partner Phone Father Name Diesel Mechanic Farm Status 04/15/20 23 1 CLOSED Fetus Data First Name Last Name Admitted to NICU Weight (g) Sex Living Outcome Pediatric Complications Fetus ID Race Codes Race Delivery Type 2721.55 2 M Full Term Vaginal Delivery Domenico Calculation Initial Domenico Date Initial Exam Date Initial Exam Provider Initial Ultrasound Date Last Menstrual Period Date Ultra Sound Weeks Gestation 0 Eighteen To Twenty Week Domenico Update Ultra Sound Date Fundal Height At Umbil Quickening Date Ultra Sound Latest Weeks Gestation Final Domenico Confirmed By Final Domenico Confirmed Date Final Domenico Date Ultra Sound Latest Days Gestation 0 0 Menstrual History Last Menstrual Date Menses Monthly On Bcp Conception Prior Menses Frequency Hcg Plus Date Menarche Onset Age Delivery Information Delivery Date Delivery Type Labor Anesthesia Weeks Gestation Incision Type Labor Labor Length Hrs Delivered By Post Complications Tubal Sterilization Discharge Date Comments 3 40 Discharge Information Feeding Method Contraceptive Method Maternal HG B and HCT Levels
== END 2024-12-27 13:26 | disposition home or self-care (01) ==
PROVIDERS: PCP Internal Medicine; Visit Provider Internal Medicine
DX: E78.2 Mixed hyperlipidemia (principal); D64.9 Anemia, unspecified; N39.0 Urinary tract infection, site not specified
CPT/HCPCS: 36415; 80053; 80061; 81003; 82550; 82728; 83540; 85025

== ENCOUNTER 2025-04-19 10:47 | Outpatient (CLI) | payer MEDICARE, SELFPAY ==
--- OUTSIDE RECORDS SUMMARY | 2025-04-19 10:52 | XMS_ITS | Clinical Summary ---
Author Organization [facility] Address [address] [place] [address] Phone Care Team Providers Care Senior Talent Acquisition Specialist Name Role Phone Unavailable Primary Care Provider Unavailabl e Medications venlafaxine XR (EFFEXOR XR) 150 MG 24 [...] Major depressive disorder with single episode Immunizations Immunization Administration Dates Next Due Influenza TIV (IM) 08/20/2014,08/20/2014 Family History Medical History Relation Comments Kidney disease Father Kidney stone Neg Hx Relation Status Comments Father Social History Tobacco Use Types Packs/Day Years Used Date Smoking Tobacco: Never Assessed Comments Unknown Sex and Gender Information Value Date Recorded Sex Assigned at Not on file Legal Sex Female 7:19 AM MST Gender Identity Not on file Sexual Orientation Not on file Last Filed Vital Signs Vital Sign Reading Time Taken Comments Blood Pressure 136/70 08/20/2014 12:01 AM TEXTILE CONVERSION MANAGER Sitting, Right Pulse - - Temperature 35.8 C (96.4 F) 08/20/2014 12:01 AM TEXTILE CONVERSION MANAGER Respiratory Rate - - Oxygen Saturation - - Inhaled Oxygen Concentration - - Weight 68 kg (150 lb) 08/20/2014 12:01 AM TEXTILE CONVERSION MANAGER Height 154.9 cm (5' 1) 08/20/2014 12:0 1 AM TEXTILE CONVERSION MANAGER Body Mass Index 28.34 08/20/2014 12:01 AM TEXTILE CONVERSION MANAGER Plan of Treatment Not on file
--- OUTSIDE RECORDS SUMMARY | 2025-04-19 10:52 | XMS_ITS | Patient Health Record ---
Author Organization [facility] [employer] [facility] Address [address] [facility] [address] [place] [address] Care Team Providers Care Fabrication Manager Name Role Phone Isatu Dos Santos Unavailable [phone] Reason For Referral No Information Plan Of Treatment No Information Insurance Providers Payer Name Payer Address Payer Phone Subscriber Number Group Number Insured Name Patient Relationship to Insured Coverage Start Date Coverage End Date Medicare-I l Medicare [address] [place] [address] [id number] PARISA ANTONIO Self - patient is the insured [facility] [address] [place] [address] [id number] PACO PARISA Self - patient is the insured
--- OUTSIDE RECORDS SUMMARY | 2025-04-19 10:52 | XMS_ITS | Clinical Summary ---
Author Organization [facility] Address [address] [place] [address] Care Team Providers Care Installer Interior Assemblies Name Role Phone Unavailable Primary Care Provider [...] 1 - Tdap) 1971 Mammogram Screening 1992 Pneumococcal Vaccine: 50+ Ye ars (1 of 1 - PCV) 2002 Zoster Vaccines (1 of 2) 2002 Dexa Scan (General) 2017 COVID-19 Vaccine ( - 2023-2 5 season) 2024 RSV Immunization or 60+ Years (1 [...]
--- OUTSIDE RECORDS SUMMARY | 2025-04-19 10:52 | XMS_ITS | Data Portability ---
Author Organization [facility] Address [address] [place] [address] Care Team Providers Care After School Tutor Name Role Phone TREY CHARLTON Primary Care [...] Repor t Case: [id number] Autho rimariza g Provi brittnee: Vicky Burgos NP Colle cted: [...] DIAGN OSIS: Negat margaret for Intra epith elial Jaxson bourgeois or Danilo alvarado ([facility]) . Elect remy mensah rose d by [...] as clini morena galan nted. Not Available [facility] (Lab) [address], [place], [address], 04/27/2024 09:25:15 Result Notes None recorded. Problems Name Problem SNOMED Code Status Onset Date Resolution Date Notes Provider Name and Address Organization Details Recorded Time Abnormal cervical Papanicol aou smear 518814312 Active 2011 Other abnormal papanicola ou smear of cervix and cervical HPV;Practi ce ID: 0001 Not Available [facility] 0 18:54:32 test negative 380274155 Active 2011 Negative Test;Pract ice ID: 0001 Not Available [facility] 0 18:54:32 Microscop ic hematuria 111319884 Active 2012 MICROSCOPI C HEMATURIA; Recorded Elsewhere: No Locatio n: [facility]: EHR Chroni c: N Practice ID: 0001 Billa ble Time: 11:30:00 AM Not Available [facility] 0 18:54:31 Screening for malignant neoplasm of cervix Active 2012 Screening for malignant neoplasms of the cervix;Rec orded Elsewhere: No Locatio n: [facility]: EHR Chroni c: N Practice ID: 0001 Billa ble Time: 11:30:00 AM Not Available [facility] 0 18:54:31 Atypical squamous cells of undetermi jordan significa nce on cervical Papanicol aou smear 518587614 Active 2012 Papanicola ou smear of cervix with atypical squamous cells of undetermin ed significan ce (ASC-US);R ecorded Elsewhere: No Locatio n: [facility] rce: EHR Chroni c: N Practice ID: 0001 Billa ble Time: 11:00:00 AM Not Available [facility] 0 18:54:31 Carbuncle of skin and/or subcutane ous tissue 62143519 Active 2013 Carbuncle and furuncle of unspecifie d site;Pract ice ID: 0001 Not Available [facility] 0 18:54:33 Specializ ed medical examinati on Active 2013 Gynecologi castillo Examinatio n;Recorded Elsewhere: No Locatio n: [facility] rce: EHR Chroni c: N Practice ID: 0001 Billa ble Time: 03:00:00 PM Not Available [facility] 0 18:54:31 Atypical glandular cells on cervical Papanicol aou smear 822148569 Active 2014 Pap Abnormal Endocerv Endometria l Óscar;Pract ice ID: 0001 Not Available [facility] 0 18:54:33 Condyloma acuminatu m of the anogenita l region 975340615 Active 2014 Condyloma acuminatum ;Recorded Elsewhere: No Locatio n: [facility] rce: EHR Chroni c: N Practice ID: 0001 Billa ble Time: 10:19:07 AM Not Available [facility] 0 18:54:32 Adult health examinati on Active 2014 ROUTINE MEDICAL EXAM;Recor ded Elsewhere: No Locatio n: [facility] rce: EHR Chroni c: N Practice ID: 0001 Billa ble Time: 09:30:00 AM Not Available [facility] 0 18:54:31 Screening for malignant neoplasm of rectum Active 2014 Screening for malignant neoplasms of the rectum;Pra ctice ID: 0001 Not Available [facility] 0 18:54:[address] Concept Active 2016 Encntr for general adult medical exam w/o abnormal findings;R ecorded Elsewhere: No Locatio n: [facility] r[facility]: EHR Chroni c: N Practice ID: 0001 Billa ble Time: 10:30:00 AM Not Available [facility] 0 18:54:[address] Concept Active 2017 Well woman check w/o abnormal finding;Re corded Elsewhere: No Locatio n: [facility] rce: EHR Chroni c: N Practice ID: 0001 Billa ble Time: 11:00:00 AM Not Available [facility] 0 18:54:31 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 Procedures Surgical History Date Name Laterality Status Provider Name and Address Organization Details Recorded Time 2 Date of Last Colonoscopy completed [facility] 04/15/2023 14:36:16 2 Date of Last Mammogram completed [facility] 04/15/2023 14:36:38 0 Date of Last Pap Smear completed [facility] 04/15/2023 14:26:55 [address] [facility] 04/15/2023 14:58:10 Carpal tunnel surgery completed [facility] 04/15/2023 14:36:56 ligation of fallopian tube completed [facility] 04/15/2023 14:37:06 Imaging Results None recorded. [...] Elsewher e: Yes Loca tion: Chanda martinez [facility] odify By: ela marcum DateTime : 03/15/20 14 01:00:00 PM Not Available Not Available Not Available Lotrisone 1 %-0.05 % topical cream apply by topical route 2 times every day for 2 weeks to the affected and surround ing areas of skin in the morning and evening 08/02 completed Prescrib ed Elsewher e: No Locat ion: Chanda martinez [facility]ify By: chani Zavala nter DateTime : 07/20/20 17 10:30:00 AM Not Available Not Available Not Available atenolol 25 mg tablet take 1 tablet by oral route every day 10/11 completed Prescrib ed Elsewher e: Yes Loca tion: Chanda martinez [facility] odify By: ela marcum DateTime : 02/09/20 12 10:30:00 AM Not Available Not Available Not Available amlodipin e 2.5 mg tablet take 1 tablet by oral route every day active Prescrib ed Elsewher e: Yes Loca tion: Chanda martinez [facility] odify By: ela marcum DateTime : 10/11/19 15 11:00:00 AM Not Available Not Available Not Available Bactroban 2 % topical cream apply by topical route 3 times every day for 10 days a small amount to the affected area 03/24 completed Prescrib ed Elsewher e: No Locat ion: Chanda martinez [facility] odify By: chani Zavala nter DateTime : 03/15/20 14 01:00:00 PM Not Available Not Available Not Available Cipro 500 mg tablet take 1 tablet by oral route every 12 hours 04/05 completed Prescrib ed Elsewher e: No Locat ion: [facility] odify By: linda burtonunter DateTime : 03/15/20 14 01:00:00 PM Not Available Not Available Not Available hydrochlo rothiazid e 25 mg tablet take 1 tablet by oral route every day 04/05 completed Prescrib ed Elsewher e: Yes Loca tion: [facility] odify By: linda Martinez ncounter DateTime : 02/09/20 12 10:30:00 AM Not Available Not Available Not Available escitalop juan 20 mg tablet Take 1 tablet every day by oral route. active Not Available Not Available No t Available bupropion HCl (bulk) 100 % powder active Prescrib ed Elsewher e: Yes Loca tion: [facility] odify By: ela marcum DateTime : 03/15/20 14 01:00:00 PM Not Available Not Available Not Available lovastati n active Not Available Not Available Not Available Vitals Date Recorded Body height Body mass index (BMI) Body weight Systolic And Diastolic Provider Name and Address Organization Details Last Updated DateTime 04/15/2023 160.02 cm 33.1 kg/m2 28533.77 g 142/82 mm[Hg] Alice Jackson [facility] 04/15/2023 14:40:23 Date Recorded Body height Body mass index (BMI) Body weight Systolic And Diastolic Provider Name and Address Organization Details Last Updated DateTime 04/20/2024 160.02 cm 28.5 kg/m2 47557.37 g 126/76 mm[Hg] Shima Davey [facility] 04/20/2024 14:30:52 Social History Question Answer Notes LastModified by Organizat ion Details LastModified Time Tobacco Smoking Status Never Smoker Alice justice [facility] 04/15/2023 14:24:36 Has Tobacco Cessation Counseling Been Provided? No Information not available 04/15/2023 Sex: Unknown Functional Status Question Answer Note LastModified by Organizat ion Details LastModified Time Do you use any illicit or recreational drugs? No Information not available 04/15/2023 Do you or have you ever used any other forms of tobacco or nicotine? No Information not available 04/15/2023 What is your level of alcohol consumption? None Information not available 04/15/2023 Mental Status None recorded. Family History Nothing Reported. Medical History Condition Response Allergies (Food, seasonal, environmental ) N Other N Drug/Latex Allergies/Reactions N Blood Transfusion N Breast Cancer N Dermatologic Disorders N Lung Disease N Defects or Inherited Disease N Breast Problem N Gestational Diabetes N Hematologic disorders N Anesthesia Complications N History of STI N Deep Vein Thrombosis N Polycystic ovary syndrome N Anxiety Disorder Y Autoimmune disease N Arthritis N Polyps N Infertility N Acid Reflux (GERD) N History of abnormal pap N Cancer N Varicosities N Stroke N Neurologic/Epilepsy N Endometriosis N High Cholesterol N Fibromyalgia N Headaches N Kidney Disease N Heart Problems N Thyroid Problems N Kidney or Bladder Problems N GI Problems N Eating Disorder [...] SNOMED-CT Code Diagnosis ICD10 Code Diagnosis Note [id number] [facility] [address] [address] 04/15/2023 14:13:18 04/15/2023 15:14:28 Gynecologic examination 79975297 Z01.419 Take Calcium with Vitamin D 12-1500mg daily. Do monthly self breast exams. It is advised to get annual flu shot in the fall and she could obtain at [facility] or [facility] care clinic. If you haven't received the [...] questions call or respond to this email [facility] opausallas t pap 2019 - normalpaps d/c'd unless otherwise indicatedS TI testing declinedMa mmogram UTD , scheduled - order through PCPDexa UTD through PCPcolonos copy UTDBP precaution s reviewed, f/u with PCPRTC in 1 year or sooner if needed [facility] [address] [address] 04/20/2024 14:22:07 04/20/2024 15:00:46 Gynecologic examination 29340653 Z01.419 [facility] opausalpap updated per pt preference declined STI screenmamm [...] Recorded Advance Directives Directive None Recorded Payers Insurance Date Sequence Insurance Name Policy Number Policy Duran Covered Member ID Duran Member ID Guarantor Name 04/20/2024 1 [place] Gladis E Niesha [id number] Gladis E Niesha 04/17/2024 2 [place] [id number] Ray A Niesha [id number] [place] E Niesha Notes Date Note Type Note Provider Name and Address Organization Details Recorded Time 3 text/html Annual Rn L And D Post-MenopausalReported by PatientGenitourinary symptomsFor menopausal symptoms, patient reportsno menopausal symptomsandnormal vaginal lubrication. For vaginal bleeding, patient reportshistory of menopause having occurredandno history of post menopausal bleeding. For urinary symptoms, patient reportsno hematuria,no incontinence,no nocturia, andno urinary frequency. For vulva, patient reportsno genital lesionandno vulvar atrophy. For vagina, patient reportsnormal vaginal dischargeandno vaginal atrophy.Breast symptomsFor breast, patient reportsno breast lump,no nipple discharge, andno breast pain.Psychological symptomsFor sexual complaints, patient reportsno sexual complaints. For psychological symptoms, patient reportsno depressionandno anxiety.Preventative measuresFor preventive measures, patient reportsencourage regular mammograms starting age 40,encourage self breast examination,encourage regular exercise,encourage no tobacco use, andmammogram performed within the past year. [facility] [address], [place], [address], [facility] 04/15/2023 15:06:56 4 text/html Annual Rn L And D Post-MenopausalReported by PatientGenitourinary symptomsFor menopausal symptoms, patient reportsno menopausal symptomsandnormal vaginal lubrication. For vaginal bleeding, patient reportshistory of menopause having occurredandno history of post menopausal bleeding. For urinary symptoms, patient reportsno hematuria,no incontinence,no nocturia, andno urinary frequency. For vulva, patient reportsno genital lesionandno vulvar atrophy. For vagina, patient reportsnormal vaginal dischargeandno vaginal atrophy.Breast symptomsFor breast, patient reportsno breast lump,no nipple discharge, andno breast pain.Psychological symptomsFor sexual complaints, patient reportsno sexual complaints. For psychological symptoms, patient reportsno depressionandno anxiety.Preventative measuresFor preventive measures, patient reportsencourage regular mammograms starting age 40,encourage self breast examination,encourage regular exercise, andencourage no tobacco use.74yo [facility] pap 2020 - normalh/o HPV (+) pap in the past, no procedures required per pt mammogram UTD / PCPcolonoscopy UTD / PCPdexa UTD / PCP [facility] [address], [place], [address], [place] [facility] 04/20/2024 14:47:09 OBGyn Episode Ob Episode Information Episode Created Date Number of Fetuses Patient Bloodtype Patient rh Status Prepregnancy Weight lbs Domestic Partner Domestic Partner Phone Father Name [employer] Officer Status 04/15/20 23 1 CLOSED Fetus Data First Name Last Name Admitted to NICU Weight (g) Sex Living Outcome Pediatric Complications Fetus ID Race Codes Race Delivery Type 1.55 2 F Full Term Vaginal Delivery Domenico [...] Domestic Partner Domestic Partner Phone Father Name [employer] Officer Status 04/15/20 23 1 CLOSED Fetus Data [...]
[2025-04-19 11:11] LABS: Hematocrit 35.4 % (35.0-42.0); Hemoglobin 11.6 g/dL (11.7-13.8); Mean Corpuscular HGB Conc 32.8 g/dL (32-36); Mean Corpuscular Hemoglobin 27.7 pg (27.0-31.0); Mean Corpuscular Volume 84.5 fL (78.0-102.0); Platelet Count Result 230 K/mm3 (150-420); Red Blood Count 4.19 M/mm3 (4.20-5.40); White Blood Count 4.2 K/mm3 (4.8-10.8)
[2025-04-19 11:39] LABS: Alanine Aminotransferase 28 U/L (6-35); Albumin Level 3.8 g/dL (3.5-5.1); Alkaline Phosphatase 104 U/L (38-126); Anion Gap 6 mmol/L (4-12); Aspartate Amino Transferase 30 U/L (14-36); Bilirubin,Total 0.5 mg/dL (0.2-1.3); Blood Urea Nitrogen 23 mg/dL (7-17); Calcium 9.1 mg/dL (8.4-10.2); Carbon Dioxide 29 mmol/L (22-30); Chloride 102 mmol/L (98-107); Estimated Glomerular Filt Rate 42; Glucose 80 mg/dL (65-110); Osmolality Calculated 286 mOsm/kg (285-295); Potassium 4.4 mmol/L (3.4-5.0); Sodium 137 mmol/L (137-145); Total Protein 6.6 g/dL (6.3-8.2)
== END 2025-04-19 10:48 | disposition home or self-care (01) ==
PROVIDERS: PCP Internal Medicine; Visit Provider Internal Medicine
DX: N18.2 Chronic kidney disease, stage 2 (mild) (principal); D64.9 Anemia, unspecified
CPT/HCPCS: 36415; 80053; 85027

== ENCOUNTER 2025-07-05 10:46 | Outpatient (CLI) | payer MEDICARE, SELFPAY ==
[2025-07-05 11:10] LABS: Hematocrit 36.0 % (35.0-42.0); Hemoglobin 11.5 g/dL (11.7-13.8); Immature Reticulocyte Fraction 7.3 % (2.0-16.52); Mean Corpuscular HGB Conc 31.9 g/dL (32-36); Mean Corpuscular Hemoglobin 27.1 pg (27.0-31.0); Mean Corpuscular Volume 84.9 fL (78.0-102.0); Platelet Count Result 271 K/mm3 (150-420); Red Blood Count 4.24 M/mm3 (4.20-5.40); Reticulocyte Hemoglobin Conten 31.4 pg (28.0-35.0); Reticulocytes Absolute 0.06 M/mm3 (0.02-0.10); White Blood Count 3.4 K/mm3 (4.8-10.8)
[2025-07-05 11:49] LABS: Anion Gap 10 mmol/L (4-12); Blood Urea Nitrogen 21 mg/dL (7-17); Calcium 9.9 mg/dL (8.4-10.2); Carbon Dioxide 26 mmol/L (22-30); Chloride 105 mmol/L (98-107); Estimated Glomerular Filt Rate 37; Glucose 68 mg/dL (65-110); Iron 90 ug/dL (37-170); Osmolality Calculated 293 mOsm/kg (285-295); Potassium 4.3 mmol/L (3.4-5.0); Sodium 141 mmol/L (137-145)
[2025-07-05 11:51] LABS: Add Urine Microscopic? YES; Appearance Urine Sl Cloudy (Clear); Glucose Urine UA Negative (Negative); Leukocyte Esterase Ur 2+ (Negative); Nitrate Urine Negative (Negative); Specific Grav Ur 1.020 (1.010-1.020)
[2025-07-05 12:24] LABS: Ferritin 148.00 ng/mL (11.1-264)
[2025-07-05 12:38] LABS: Vitamin B12 463.0 pg/mL (239-931)
[2025-07-06 06:37] LABS: Parathyroid Intact 68.8 (7.5-53.5)
== END 2025-07-05 10:47 | disposition home or self-care (01) ==
LOC: CHSLAB 10:48
PROVIDERS: PCP Internal Medicine; Visit Provider Internal Medicine
DX: D64.9 Anemia, unspecified (principal); I12.9 Hypertensive chronic kidney disease with stage 1 through stage 4 chronic kidney disease, or unspecified chronic kidney disease; N18.2 Chronic kidney disease, stage 2 (mild)
CPT/HCPCS: 36415; 80048; 81001; 82607; 82668; 82728; 83540; 83970; 85027; 85046

== ENCOUNTER 2025-07-09 11:08 | Outpatient (CLI) | payer MEDICARE, SELFPAY ==
[2025-07-09 11:44] LABS: CRP < 0.5 mg/dL (<1.0)
--- OUTSIDE RECORDS SUMMARY | 2025-07-09 12:26 | XMS_ITS | Clinical Summary ---
Author Organization [facility] Address [address] [place] [address] Phone Care Team Providers Care Lining Feller Blindstitch Name Role Phone Unavailable Primary Care Provider [...] Comments Blood Pressure 136/70 08/20/2014 12:01 AM FOLD SKIVER Sitting, Right Pulse - - Temperature 35.8 C (96.4 F) 08/20/2014 12:01 AM FOLD SKIVER Respiratory Rate - - Oxygen Saturation - - Inhaled Oxygen Concentration - - Weight 68 kg (150 lb) 08/20/2014 12:01 AM FOLD SKIVER Height 154.9 cm (5' 1) 08/20/2014 12:0 1 AM FOLD SKIVER Body Mass Index 28.34 08/20/2014 12:01 AM FOLD SKIVER Plan of Treatment Not on file
--- OUTSIDE RECORDS SUMMARY | 2025-07-09 12:26 | XMS_ITS | Clinical Summary ---
Author Organization [facility] Address [address] [place] [address] Care Team Providers Care Cardiology Clinical Nurse Specialist Name Role Phone Unavailable Primary Care [...] COVID-19 Vaccine ( - 2023-2 5 season) 2025 Influenza Adult (#1) 2025 RSV Immunization or 60+ Years (1 - [...]
--- OUTSIDE RECORDS SUMMARY | 2025-07-09 12:26 | XMS_ITS | Patient Health Record ---
Author Organization [facility] [employer] [facility] Address [address] [facility] [address] [place] [address] Care Team Providers Care Neurology Manager Name Role Phone Isatu Dos Santos Unavailable [phone] Reason For Referral No Information Plan Of Treatment No Information Insurance Providers Payer Name Payer Address Payer Phone Subscriber Number Group Number Insured Name Patient Relationship to Insured Coverage Start Date Coverage End Date Medicare-I l Medicare [address] [place] [address] [id number] PACO PARISA Self - patient is the insured [facility] [address] [place] [address] [id number] PACO PARISA Self - patient is the insured
[2025-07-10 15:09] LABS: Albumin 3.1 g/dL (2.9-4.4); Alpha-1-Globulin 0.3 g/dL (0.0-0.4); Alpha-2-Globulin 0.8 g/dL (0.4-1.0); Free Lambda Lt Chains, Serum 29.1 mg/L (5.7-26.3); Gamma Globulin 1.2 g/dL (0.4-1.8); Kappa/Lambda Ratio, Serum 0.58 (0.26-1.65)
[2025-07-11 13:09] LABS: Immunoglobulin A, Qn 84 mg/dL (64-422); Immunoglobulin G, Qn 1345 mg/dL (586-1602); Immunoglobulin M, Qn 57 mg/dL (26-217)
[2025-07-11 14:09] LABS: Albumin, U 18.2 % (.); Alpha-1-Globulin, U 2.2 % (.); Alpha-2-Globulin, U 15.2 % (.); Beta Globulin, U 27.8 % (.); Gamma Globulin, U 36.6 % (.)
== END 2025-07-09 11:09 | disposition home or self-care (01) ==
LOC: CHSLAB 11:09
PROVIDERS: PCP Internal Medicine; Visit Provider Internal Medicine
DX: D61.818 Other pancytopenia (principal); N18.30 Chronic kidney disease, stage 3 unspecified
CPT/HCPCS: 36415; 82784; 83521; 84155; 84156; 84165; 84166; 85652; 86140; 86334

== ENCOUNTER 2025-07-17 11:38 | Outpatient (CLI) | payer MEDICARE, SELFPAY ==
[2025-07-17 11:48] LABS: Hematocrit 34.6 % (35.0-42.0); Hemoglobin 11.1 g/dL (11.7-13.8); Mean Corpuscular HGB Conc 32.1 g/dL (32-36); Mean Corpuscular Hemoglobin 27.1 pg (27.0-31.0); Mean Corpuscular Volume 84.6 fL (78.0-102.0); Platelet Count Result 253 K/mm3 (150-420); Red Blood Count 4.09 M/mm3 (4.20-5.40); White Blood Count 4.3 K/mm3 (4.8-10.8)
[2025-07-17 12:58] LABS: Anion Gap 4 mmol/L (4-12); Blood Urea Nitrogen 16 mg/dL (7-17); Calcium 9.8 mg/dL (8.4-10.2); Carbon Dioxide 32 mmol/L (22-30); Chloride 105 mmol/L (98-107); Estimated Glomerular Filt Rate 35; Glucose 80 mg/dL (65-110); Osmolality Calculated 292 mOsm/kg (285-295); Potassium 4.4 mmol/L (3.4-5.0); Sodium 141 mmol/L (137-145)
--- OUTSIDE RECORDS SUMMARY | 2025-07-17 14:34 | XMS_ITS | Clinical Summary ---
Author Organization [facility] Address [address] [place] [address] Care Team Providers Care Supervisor Park Workers Name Role Phone Unavailable Primary Care Provider [...] Years (1 - 1-dose 75+ series) 2027 Hepatitis A Vaccines Aged Out No long er eligible based on patient's age to complete this topic Meningococcal B Vaccine Aged Out No l onger eligible based on patient's age to complete this topic Meningococcal Vaccine Aged Out No ramesh deven eligible based on patient's age to complete this topic RSV Immunizations Under 20 Months Aged Out No longer eligible based on patient's age to complete this topic
--- OUTSIDE RECORDS SUMMARY | 2025-07-17 14:34 | XMS_ITS | Patient Health Record ---
Author Organization [facility] [employer] [facility] Address [address] [facility] [address] [place] [address] Care Team Providers Care Coal Shoveler Name Role Phone Isatu Dos Santos Unavailable [phone] Reason For Referral No Information Plan Of Treatment No Information Insurance Providers Payer Name Payer Address Payer Phone Subscriber Number Group Number Insured Name Patient Relationship to Insured Coverage Start Date Coverage End Date Medicare-I l Medicare [address] [place] [address] [id number] PACO PARISA Self - [facility] the insured [facility] [address] [place] [address] [id number] PACO PARISA Self - patient is the insured
--- OUTSIDE RECORDS SUMMARY | 2025-07-17 14:34 | XMS_ITS | Clinical Summary ---
Author Organization [facility] Address [address] [place] [address] Phone Care Team Providers Care Cuff Knitter Name Role Phone Unavailable Primary Care Provider [...] Comments Blood Pressure 136/70 08/20/2014 12:01 AM CREW LEAD Sitting, Right Pulse - - Temperature 35.8 C (96.4 F) 08/20/2014 12:01 AM CREW LEAD Respiratory Rate - - Oxygen Saturation - - Inhaled Oxygen Concentration - - Weight 68 kg (150 lb) 08/20/2014 12:01 AM CREW LEAD Height 154.9 cm (5' 1) 08/20/2014 12:0 1 AM CREW LEAD Body Mass Index 28.34 08/20/2014 12:01 AM CREW LEAD Plan of Treatment Not on file
== END 2025-07-17 11:39 | disposition home or self-care (01) ==
PROVIDERS: PCP Internal Medicine; Visit Provider Internal Medicine
DX: D64.9 Anemia, unspecified (principal); N18.32 Chronic kidney disease, stage 3b
CPT/HCPCS: 36415; 80048; 85027